=== PATIENT | male | born 1945 | race Hispanic/Latino ===

== ENCOUNTER 2020-01-23 11:33 | Outpatient (CLI) | payer MEDICARE, OTHER ==
[2020-01-23 11:42] LABS: Hematocrit 42.8 % (35.5-45.6); Hemoglobin 14.4 gm/dl (11.8-15.2); Mean Corpuscular HGB Conc 34 % (32-34); Mean Corpuscular Volume 92 fl (84-94); Platelet Count 387 K/mm3 (140-440); Red Blood Count 4.65 M/mm3 (3.65-5.03)
[2020-01-23 11:45] LABS: Red Cell Distribution Width 22.2 % (13.2-15.2)
[2020-01-23 11:52] LABS: Albumin 2.7 g/dL (3.9-5)
[2020-01-23 12:00] LABS: Calcium 5.9 mg/dL (8.4-10.2)
[2020-01-23 13:52] LABS: Band Neutrophils # (Manual) 0.9 K/mm3; Basophils % (Manual) 0 % (0.0-1.8); Eosinophils % (Manual) 0 % (0.0-4.3); Monocytes % (Manual) 0 % (0.0-7.3); Total Cells Counted 100
[2020-01-23 13:53] LABS: Anisocytosis 1+; Platelet Estimate Consistent w Auto
== END 2020-01-23 11:34 | disposition home or self-care (01) ==
LOC: LABHHL 11:33
PROVIDERS: ATTEND Family Medicine
DX: E11.9 Type 2 diabetes mellitus without complications (principal); G89.4 Chronic pain syndrome; J44.9 Chronic obstructive pulmonary disease, unspecified; J18.9 Pneumonia, unspecified organism
CPT/HCPCS: 36415; 80053; 85007; 85025